=== PATIENT | female | born 1985 | race African-American/Black ===

== ENCOUNTER 2018-07-22 08:20 | Outpatient (CLI) | payer OTHER ==
[2018-07-22 12:13] VITALS: BP 111/61
--- NOTE | 2018-07-22 15:04 | Ultrasound Report ---
ULTRASOUND BIOPHYSICAL PROFILE: History: Spontaneous rupture of membranes Technique: Transabdominal ultrasound with Doppler interrogation. 2 - breathing movements 2 - movements 2 - posture and tone 2 - Qualitative amniotic fluid volume 8 - TOTAL SCORE OF POSSIBLE 8 Heart Rate (bpm) 143
--- NOTE | 2018-07-22 15:04 | Ultrasound Report ---
ULTRASOUND OB LIMITED History: Spontaneous rupture of membranes Technique: Transabdominal ultrasound with Doppler interrogation. Gestation: Single Position: Cephalic Amniotic Fluid: Normal HELENA = 12.9 cm Heart Rate: 146 BPM
== END 2018-07-22 12:30 | disposition home or self-care (01) ==
LOC: TRG 08:20
PROVIDERS: ATTEND Obstetrics & Gynecology
DX: O47.1 False labor at or after 37 completed weeks of gestation (principal); Z3A.38 38 weeks gestation of pregnancy
CPT/HCPCS: 59025; 76815; 76819

== ENCOUNTER 2018-07-24 14:42 | Inpatient (IN) | payer OTHER ==
[2018-07-24] MEDS ORDERED: STADOL IV PRN (15:12)
[2018-07-24] MEDS ORDERED: BRETHINE SUB-Q PRN (15:12)
[2018-07-24] MEDS ORDERED: MINERAL OIL PO PRN (15:12)
[2018-07-24] MEDS ORDERED: XYLOCAINE 2% INFILTRATI ONE ×2 (15:12→23:28)
[2018-07-24] MEDS ORDERED: ZOFRAN IV PRN (15:12)
[2018-07-24] MEDS ORDERED: BRETHINE IVP PRN (15:12)
[2018-07-24 15:48] LABS: Hematocrit 41.6 % (30.3-42.9); Hemoglobin 14.1 gm/dl (10.1-14.3); Mean Corpuscular HGB Conc 34 % (30-34); Mean Corpuscular Volume 90 fl (79-97); Platelet Count 263 K/mm3 (140-440); Red Blood Count 4.64 M/mm3 (3.65-5.03); Red Cell Distribution Width 15.3 % (13.2-15.2)
[2018-07-24] MEDS ORDERED: PITOCin/NS 30 UNIT/500ML 30 UNITS/500 ML BAG IV SCH ×2 (16:00)
[2018-07-24] MEDS ORDERED: LACTATED RINGERS 1,000 ML IV SCH (16:00)
[2018-07-24 16:06] LABS: Alanine Aminotransferase 13 units/L (7-56); Albumin 3.7 g/dL (3.9-5); BUN/Creatinine Ratio 20; Blood Urea Nitrogen 10 mg/dL (7-17); Calcium 8.5 mg/dL (8.4-10.2); Hemolysis Index 25
[2018-07-24] MEDS ORDERED: NARCAN 0.4 MG/1 ML IV PRN (18:29)
--- NOTE | 2018-07-24 18:42 | History and Physical Report ---
History of Present Illness Date of examination: 07/24/18 Date of admission: 07/24/18 14:43 Chief complaint: My water broke today History of present illness: Early entry to care, co-managed with [facility] due to GDM A1. course also complicated by Vitamin D Deficiency. Past History Past Medical History: no pertinent history Past Surgical History: no surgical history Family/Genetic History: diabetes, hypertension Social history: no significant social history, - Obstetrical History Expected Date of Delivery: 07/30/18 Actual Gestation: 39 Week(s) 1 Day(s) : 1 Medications and Allergies Allergies Allergy/AdvReac Type Severity Reaction Status Date / Time No Known Allergies Allergy Unverified 07/22/18 09:22 Active Meds: Active Medications Butorphanol Tartrate (Stadol) 2 mg IV Q2H PRN PRN Reason: Pain , Severe (7-10) Ephedrine Sulfate (Ephedrine Sulfate) 10 mg IV Q2M PRN PRN Reason: Hypotension Lactated Ringer's (Lactated Ringers) 1,000 mls @ 125 mls/hr IV DIRECT FABY Last Admin: 07/24/18 16:23 Dose: 125 mls/hr Documented by: Oxytocin/Sodium Chloride (Pitocin/Ns 20 Unit/1000ml Drip) 20 units in 1,000 mls @ 125 mls/hr IV DIRECT FABY Oxytocin/Sodium Chloride (Pitocin/Ns 30 Unit/500ml) 30 units in 500 mls @ 1 mls/hr IV TITR FABY; Protocol Last Titration: 07/24/18 18:12 Dose: 12 milliunits/min, 12 mls/hr Documented by: Oxytocin/Sodium Chloride (Pitocin/Ns 30 Unit/500ml) 30 units in 500 mls @ 2 mls/hr IV TITR FABY; Protocol Mineral Oil (Mineral Oil) 30 ml PO QHS PRN PRN Reason: Constipation Naloxone HCl (Narcan 0.4 Mg/1 Ml) 0.1 mg IV Q2MIN PRN PRN Reason: Res Rate </= 8 or 02 SAT < 92% Ondansetron HCl (Zofran) 4 mg IV Q8H PRN PRN Reason: Nausea And Vomiting Terbutaline Sulfate (Brethine) 0.25 mg SUB-Q ONCE PRN PRN Reason: Hyperstimulation/Hypertonicity Terbutaline Sulfate (Brethine) 0.25 mg IVP ONCE PRN PRN Reason: Hyperstimulation/Hypertonicity Review of Systems All systems: negative - Vital Signs Vital signs: Vital Signs Temp Pulse Resp BP 97.8 F 95 H 16 115/72 07/24/18 15:01 07/24/18 15:01 07/24/18 15:01 07/24/18 15:01 Temp Pulse Resp BP Pulse Ox 97.8 F 92 H 16 106/68 07/24/18 15:01 07/24/18 18:07 07/24/18 15:01 07/24/18 18:07 - Physical Exam Breasts: Positive: normal Cardiovascular: Regular rate Lungs: Positive: Clear to auscultation, Normal air movement Abdomen: Positive: normal appearance, soft, normal bowel sounds Genitourinary (Female): Positive: normal external genitalia, normal perenium Vagina: Positive: normal moisture Uterus: Positive: enlarged Anus/Rectum: Positive: normal perianal skin Extremities: Positive: normal - Obstetrical FHR: category 1 Uterine Contraction Monitor Mode: External Cervical Dilatation: 3 (moderate amount of clear leaking) Cervical Effacement Percentage: 70 station: -2 Uterine Contraction Pattern: Irregular Uterine Tone Measurement Phase: Resting Uterine Contraction Intensity: Moderate Results Result Diagrams: 07/24/18 15:25 07/24/18 15:25 Abnormal lab results 07/24/18 07/24/18 Range/Units 15:25 15:25 WBC 12.2 H (4.5-11.0) K/mm3 RDW 15.3 H (13.2-15.2) % Creatinine 0.5 L (0.7-1.2) mg/dL Glucose 106 H (65-100) mg/dL Alkaline Phosphatase 159 H (35-129) units/L Albumin 3.7 L (3.9-5) g/dL All other labs normal. Assessment and Plan A: IUP @ 39 1/7 Weeks Category I Tracing PROM GBS Negative GDM A1 P: Admit to L&D per Routine Orders Accuchecks q 4 hours Pitocin Induction
[2018-07-24] MEDS ORDERED: SUBLIMAZE IV ONE (22:29)
[2018-07-24] MEDS: PITOCin/NS 20 UNIT/1000ML DRIP 20 UNITS/1,000 ML BAG IV SCH (23:32)
--- NOTE | 2018-07-25 00:36 | Procedure Note ---
OB Delivery Note - Delivery Date of Delivery: 07/25/18 (2324) Surgeon: DAVID WALSH Estimated blood loss: other (400) - Vaginal Delivery presentation: vertex Delivery position: OA Intrapartum events: none Delivery induction: oxytocin Delivery augmentation: pitocin Delivery monitor: external FHT, external uterine Route of delivery: Delivery placenta: spontaneous Delivery cord: 3 umbilical vessels Episiotomy: none Delivery laceration: 2nd degree Delivery repair: vicryl Anesthesia: local Delivery comments: of a live 7'0 female infant over a 2nd degree vaginal wall/perineal laceration under IV pain control with Apgars of 8 and 9 at 2324 on 07/24/2018. directly to maternal abd/chest, skin to skin contact. Delayed cord clamping and cutting; Cord cut by the father of the baby. Spontaneous delivery of placenta complete and intact with Mederos presenting at 2327. Fundus is firm and midline located 4 below the U. Lochia is scant. Lacerations repaired with 2- [address]-1 under local 2% Lidocaine. Cord blood collected. Placenta discarded. - Infant A at 1 minute: 8 at 5 minutes: 9 Gender: Female (7'0)
[2018-07-25] MEDS: PITOCin/NS 20 UNIT/1000ML DRIP 20 UNITS/1,000 ML BAG IV SCH (01:29)
[2018-07-25] MEDS ORDERED: NORCO 5/325 PO PRN (02:00)
[2018-07-25] MEDS: IBUPROFEN PO SCH ×3 (02:13→19:26)
[2018-07-25] MEDS: TUCKS PAD TP PRN (02:13)
--- NOTE | 2018-07-25 10:27 | Progress Note ---
Assessment and Plan A: PPD#1 s/p Stable P: Routine PP orders Anticipate discharge home 07/26/18 Subjective - Subjective Date of service: 07/25/18 Principal diagnosis: PPD#1 s/p Patient reports: appetite normal, voiding normally, pain well controlled, flatus, ambulating normally : doing well Objective - Vital Signs Latest vital signs: Vital Signs Temp Pulse Resp BP BP Pulse Ox 07/25/18 08:16 98.5 F 105 H 16 96/58 96 07/25/18 05:45 98.0 F 90 18 102/62 100 07/25/18 03:50 98.5 F 103 H 16 101/61 100 07/25/18 02:13 18 07/25/18 02:05 98.8 F 98 H 18 104/64 97 07/25/18 01:14 116 H 98 07/25/18 01:13 112 H 113/58 07/25/18 01:09 121 H 97 07/25/18 01:04 122 H 97 07/25/18 00:59 130 H 94 07/25/18 00:55 138 H 94 07/25/18 00:54 117 H 96 07/25/18 00:49 119 H 95 07/25/18 00:44 118 H 96 07/25/18 00:43 116 H 99/57 07/25/18 00:39 118 H 96 07/25/18 00:34 121 H 96 07/25/18 00:29 99.7 F H 119 H 18 102/56 97 07/25/18 00:28 107 H 102/56 07/25/18 00:24 106 H 97 07/25/18 00:19 105 H 98 07/25/18 00:13 111 H 103/55 07/24/18 23:58 112 H 101/56 07/24/18 23:06 106 H 111/58 07/24/18 22:36 103 H 18 126/80 07/24/18 22:06 97 H 136/79 07/24/18 21:36 85 126/74 07/24/18 21:06 82 115/68 07/24/18 20:36 82 108/62 07/24/18 20:14 18 07/24/18 20:06 88 115/70 07/24/18 19:41 98.5 F 90 18 120/81 07/24/18 19:36 90 120/81 07/24/18 19:06 88 114/73 07/24/18 18:07 92 H 106/68 07/24/18 17:37 88 112/73 07/24/18 16:45 96 H 110/67 07/24/18 15:01 97.8 F 95 H 16 115/72 Intake and Output 07/24/18 07/25/18 07/25/18 23:59 07:59 15:59 Intake Total 153.066 343.75 Output Total 300 Balance 153.066 43.75 Intake: IV 33.066 243.75 PITOCin/NS 20 UNIT/1000ML 243.75 DRIP 20 units In 1,000 ml @ 125 mls/hr IV DIRECT FABY Rx#:[id number] PITOCin/NS 30 UNIT/500ML 33.066 30 units In 500 ml @ 1 MILLIUNITS/MIN 1 mls/hr IV TITR FABY Rx#:[id number] Oral 120 Intake, Free Water 100 Output: Urine 300 Void 300 Other: Total, Intake Amount 120 Total, Output Amount 300 # Voids Void 1 1 Estimated Blood Loss 400 - Exam Breasts: Present: normal Cardiovascular: Present: Regular rate, Normal S1, Normal S2, No murmurs Lungs: Present: Clear to auscultation, Normal air movement Abdomen: Present: normal appearance, soft, normal bowel sounds. Absent: distention Vulva: both: normal, laceration/episiotomy (2nd perineal laceration. Well approximated) Uterus: Present: firm, fundal height below umbilicus (-1) Extremities: Present: normal Deep Tendon Reflex Grade: Normal +2 - Labs Labs: Abnormal lab results 07/24/18 07/24/18 07/24/18 Range/Units 15:25 15:25 19:37 WBC 12.2 H (4.5-11.0) K/mm3 RDW 15.3 H (13.2-15.2) % Creatinine 0.5 L (0.7-1.2) mg/dL Glucose 106 H (65-100) mg/dL POC Glucose 65 L (70-105) Alkaline Phosphatase 159 H (35-129) units/L Albumin 3.7 L (3.9-5) g/dL 03/21/19 Range/Units 07:27 WBC (4.5-11.0) K/mm3 RDW (13.2-15.2) % Creatinine (0.7-1.2) mg/dL Glucose (65-100) mg/dL POC Glucose 120 H (70-105) Alkaline Phosphatase (35-129) units/L Albumin (3.9-5) g/dL
[2018-07-25 11:02] LABS: Hematocrit 30.8 % (30.3-42.9); Hemoglobin 10.2 gm/dl (10.1-14.3)
[2018-07-26] MEDS: IBUPROFEN PO SCH ×3 (02:55→15:52)
--- NOTE | 2018-07-26 09:45 | Progress Note ---
Assessment and Plan A: 1. 32 yo, , PPD1 s/p 2. O+ blood type 3. GDM (BGs: 120;126;92;145;88) 4. Vit D deficiency 5. Second degree perineal laceration with repair 6. Anemia P: 1. Continue current routine PP orders 2. Continue iron supplementation 3. D/C home tomorrow 4. F/U with office if needed in 1 week for laceration repair site check 5. F/U with office in 6 wks for PPV Subjective - Subjective Date of service: 07/26/18 Principal diagnosis: PPD#1 s/p Interval history: See: Admission H & P, OB delivery summary and PP progress notes Patient reports: appetite normal, voiding normally, flatus, ambulating normally, other (Reports tenderness at laceration repair site. Education given on use of vesna bottle, and to continue ibuprofen around the clock as needed for pain.) : doing well, other (breast feeding ) Objective - Vital Signs Latest vital signs: Vital Signs Temp Pulse Resp BP BP Pulse Ox 07/26/18 07:46 97.3 F L 100 H 18 102/64 97 07/26/18 01:45 99 F 108 H 18 99/59 97 07/25/18 16:27 98.1 F 108 H 18 104/59 97 07/25/18 11:56 98.9 F 109 H 18 108/68 96 Intake and Output 07/25/18 07/26/18 07/26/18 23:59 07:59 15:59 Intake Total 720 720 Balance 720 720 Intake: Oral 480 360 Intake, Free Water 240 360 Other: Total, Intake Amount 480 360 # Voids Void 2 2 - Exam Breasts: Present: normal Cardiovascular: Present: Regular rate, Normal S1, Normal S2 Lungs: Present: Clear to auscultation, Normal air movement Abdomen: Present: soft, normal bowel sounds Uterus: Present: firm, fundal height below umbilicus (U-1) Extremities: Present: normal Deep Tendon Reflex Grade: Normal +2 Comments: Laceration site with sutures intact, no signs of infection noted. - Labs Labs: Abnormal lab results 07/25/18 07/25/18 Range/Units 11:30 22:28 POC Glucose 126 H 145 H (70-105)
--- NOTE | 2018-07-26 09:58 | Discharge Summary ---
Providers - Providers Date of Admission: 07/24/18 14:43 Date of discharge: 07/27/18 Attending physician: GARTH DRISCOLL MD Primary care physician: GARTH DRISCOLL MD Hospitalization Reason for admission: other (IOL for GDM) Delivery: Episiotomy: none Laceration: 2nd degree (with repair) Other procedures: none complications: other (anemia) baby: female Hospital course: See: Admission H & P, OB delivery summary and PP progress notes Condition at discharge: Stable Disposition: DC-01 TO HOME OR SELFCARE - Discharge Diagnoses (1) (normal spontaneous vaginal delivery) Status: Acute (2) Anemia Status: Acute Qualifiers: Anemia type: iron deficiency Plan - Provider Discharge Summary Activity: routine, no sex for 6 weeks, no heavy lifting 4 weeks, no strenuous exercise Diet: routine Instructions: routine Additional instructions: [] Smoking cessation referral if applicable(refer to patient education folder for contact #) [] Refer to [facility] Booklet Continue Ibuprofen alternating with Tylenol at home for pain Continue iron supplementation at home Call your doctor immediately for: * Fever > 100.5 * Heavy vaginal bleeding ( >1 pad per hour) * Severe persistent headache * Shortness of breath * Reddened, hot, painful area to leg or breast * Drainage or odor from incision. * Keep incision clean and dry at all times and follow doctor's instructions regarding bathing/showering - Follow up plan Follow up: GARTH DRISCOLL MD [Primary Care Provider] - 6 Weeks
[2018-07-26] MEDS: FEOSOL PO SCH ×2 (10:08→21:52)
[2018-07-26] MEDS: TUCKS PAD TP PRN ×2 (11:25→21:52)
[2018-07-27] MEDS: IBUPROFEN PO SCH ×2 (00:02→05:36)
[2018-07-27 18:22] VITALS: BP 112/76
== END 2018-07-27 17:10 | disposition home or self-care (01) | DRG 807 ==
LOC: TRG 14:42 → LD 14:43 → TRG 14:43 → OB 07-25 01:38
PROVIDERS: ADMIT Obstetrics & Gynecology; ATTEND Obstetrics & Gynecology
PROC: 10E0XZZ Delivery of Products of Conception, External Approach (ICD-10-PCS; principal; 2018-07-25)
PROC: 0KQM0ZZ Repair Perineum Muscle, Open Approach (ICD-10-PCS; 2018-07-25)
PROC: 3E033VJ Introduction of Other Hormone into Peripheral Vein, Percutaneous Approach (ICD-10-PCS; 2018-07-25)
DX: O42.92 Full-term premature rupture of membranes, unspecified as to length of time between rupture and onset of labor (principal); Z37.0 Single live birth; Z3A.39 39 weeks gestation of pregnancy; O24.429 Gestational diabetes mellitus in childbirth, unspecified control; D50.9 Iron deficiency anemia, unspecified; O99.02 Anemia complicating childbirth; E55.9 Vitamin D deficiency, unspecified; Z83.3 Family history of diabetes mellitus; Z82.49 Family history of ischemic heart disease and other diseases of the circulatory system; O70.1 Second degree perineal laceration during delivery
CPT/HCPCS: 36415; 80053; 82962; 85014; 85018; 85027; 86592; 86850; 86900; 86901; G0378; J0595; J2590; J3010; J7120